=== PATIENT | female | born 1980 | race Caucasian/White ===

== ENCOUNTER 2018-03-01 10:33 | Inpatient (IN) | payer BC, OTHER ==
[~2018-03-01] VITALS: Ht 170.2 cm; Wt 81.6 kg
[2018-03-01] MEDS ORDERED: ONDANSETRON HCL INJ 2 MG/ML VIAL IV STA (10:56)
[2018-03-01] MEDS ORDERED: FAMOTIDINE 20 MG/2 ML VIAL IV STA (10:56)
[2018-03-01] MEDS ORDERED: MORPHINE SULFATE 5 MG/ML VIAL IV ONE (11:00)
[2018-03-01] MEDS ORDERED: DICYCLOMINE HCL 20 MG/2 ML VIAL IM ONE (11:00)
[2018-03-01] MEDS ORDERED: SODIUM CHLORIDE 0.9% 1000ML 2,000 ML IV ONE (11:00)
[2018-03-01 11:15] LABS: BASOPHILS % 0.3 % (0.0-1.0); HEMATOCRIT 44.1 % (34.2-44.1); HEMOGLOBIN 15.4 g/dL (12.0-16.0); LYMPHOCYTES # (AUTO) 1.4 (1.0-3.2); LYMPHOCYTES % 9.8 % (18.0-39.1); MEAN CORPUSCULAR HGB CONC 34.9 g/dL (31-35); MEAN CORPUSCULAR VOLUME 85.8 fL (81-99); MONOCYTES # (AUTO) 0.4 (0.2-0.8); MONOCYTES % 2.5 % (4.4-11.3); NEUTROPHILS # (AUTO) 12.7 (2.1-6.9); NEUTROPHILS % 86.9 % (38.7-80.0); PLATELET COUNT 442 x10e3/uL (140-360); RED BLOOD COUNT 5.14 x10e6/uL (3.6-5.1); RED CELL DISTRIBUTION WIDTH 12.1 % (11.7-14.4)
[2018-03-01] MEDS ORDERED: INSULIN REGULAR, HUMAN 100 UNIT/1 ML 3ML VIAL IV ONE (11:15)
[2018-03-01] MEDS ORDERED: MORPHINE SULFATE INJ 4 MG/ML INJ IV SCH (11:15)
[2018-03-01 11:27] LABS: BILIRUBIN,URINE NEGATIVE (NEGATIVE); CLARITY,URINE SL CLOUDY (CLEAR); COLOR,URINE YELLOW (YELLOW); KETONES,URINE 2+ (NEGATIVE); LEUKOCYTE ESTERASE ,URINE NEGATIVE (NEGATIVE); NITRITE,URINE NEGATIVE (NEGATIVE); PROTEIN,URINE DIPSTICK NEGATIVE (NEGATIVE); URINE UROBILINOGEN 0.2 mg/dL (0.2 - 1)
[2018-03-01 11:28] LABS: BACTERIA,URINE MANY /HPF; EPITHELIAL CELLS,URINE MANY /LPF
[2018-03-01 11:37] LABS: ALANINE AMINOTRANSFERASE 14 IU/L (0-55); ALBUMIN 4.1 g/dL (3.5-5.0); ALBUMIN/GLOBULIN RATIO 0.9 (0.8-2.0); ALKALINE PHOSPHATASE 110 IU/L (40-150); ANION GAP 20.2 mmol/L (8-16); BLOOD UREA NITROGEN 11 mg/dL (7-26); BUN/CREATININE RATIO 13 (6-25); CALCIUM 9.7 mg/dL (8.4-10.2); CARBON DIOXIDE 21 mmol/L (22-29); CHLORIDE 97 mmol/L (98-107); CREATININE, SERUM 0.87 mg/dL (0.57-1.11); EST GLOMERULAR FILTRATION RATE > 60 ML/MIN (60-); GLUCOSE 389 mg/dL (74-118); LIPASE 10 U/L (8-78); POTASSIUM 4.2 mmol/L (3.5-5.1); SODIUM 134 mmol/L (136-145)
[2018-03-01 11:57] LABS: MAGNESIUM 2.3 MG/DL (1.3-2.1); PHOSPHORUS 2.6 MG/DL (2.3-4.7)
[2018-03-01] MEDS ORDERED: IOPAMIDOL 370 MG/ML 200 ML INFUS..BTL INJ ONE (12:05)
[2018-03-01] MEDS ORDERED: SODIUM CHLORIDE 0.9% 50ML 50 ML ONE (12:05)
[2018-03-01] MEDS ORDERED: ENALAPRILAT IV INJ 1.25 MG/ML VIAL IV STA (12:28)
[2018-03-01] MEDS ORDERED: SODIUM CHLORIDE 0.9% 1000ML 1,000 ML ONE (12:46)
--- NOTE | 2018-03-01 13:18 | Diagnostic Imaging Report ---
EXAM: CT Abdomen and Pelvis WITH contrast INDICATION: Abdominal Pain COMPARISON: None. TECHNIQUE: Abdomen and pelvis were scanned utilizing a multidetector helical scanner from the lung base to the pubic symphysis after administration of IV contrast. Coronal and sagittal reformations were obtained. Routine protocol was performed. Scan was performed when during portal venous phase. IV CONTRAST: 100 mL of Isovue 370 ORAL CONTRAST: Gastrografin and water COMPLICATIONS: None RADIATION DOSE: Total DLP: 368.8 mGy*cm CTDIvol has been reviewed. It is below the limits set by the Radiation Protocol Committee (RPC). FINDINGS: LINES and TUBES: None. LOWER THORAX: Unremarkable HEPATOBILIARY: Diffuse mild fatty liver. No evidence of focal lesion. No biliary ductal dilation. GALLBLADDER: Status post cholecystectomy. SPLEEN: No splenomegaly. PANCREAS: No focal masses or ductal dilatation. ADRENALS: No adrenal nodules KIDNEYS/URETERS: Kidneys enhance symmetrically. No evidence of hydronephrosis, solid mass, or stone. GI TRACT: No evidence of wall thickening or distension. Appendix is normal. Scattered colonic diverticulosis without CT evidence of diverticulitis. PELVIC ORGANS/BLADDER: IUD is present. LYMPH NODES: No lymphadenopathy. VESSELS: There is a separate origin of the common hepatic artery and splenic artery directly from the aorta. PERITONEUM / RETROPERITONEUM: No free air or fluid. BONES AND SOFT TISSUES: No acute bony findings. Subcutaneous gas is present in the left lower back soft tissues. CONCLUSION: No acute abnormality in the abdomen or pelvis. Normal appendix. Mild fatty liver. Subcutaneous air in the left lower back soft tissues, which may be related to subcutaneous injection or trauma. No soft tissue stranding or fluid collection to suggest infection. Signed by: Dr. Gayle Del Rosario MD on 03/01/2018 1:15 PM
[2018-03-01] MEDS ORDERED: DEXTROSE 50% SYRINGE 50 ML IV PRN (14:15)
[2018-03-01] MEDS ORDERED: ONDANSETRON HCL INJ 2 MG/ML VIAL IV PRN (14:15)
[2018-03-01] MEDS: MORPHINE SULFATE INJ 4 MG/ML INJ IV PRN ×2 (14:25→20:33)
[2018-03-01] MEDS: PIPER-TAZ 3.375 GM 50 ML IV SCH ×2 (14:30→22:05)
[2018-03-01] MEDS: SODIUM CHLORIDE 0.9% 1000ML 1,000 ML IV SCH (14:30)
--- OUTSIDE RECORDS SUMMARY | 2018-03-01 14:32 | XMS REPORT ---
Author Author [facility] Address Unknown Phone Unavailable Care Team Providers Care Lipcoat Sprayer Name Role Phone Grayson HASKINS Unavailable Unavailable Problems This patient has no known problems. Allergies, Adverse Reactions, Alerts This patient has no known allergies or adverse reactions. Medications This patient has no known medications. Results Test Description Test Time Test Comments Text Results Atomic Results Result Comments CT ABDOMEN/PELVIS W 2018-03-01 13:05:00 [place] [address] Patient Name: LOLA MONROE MR #: [id number] : 1980 Age/Sex: 37/F Req #: [id number] Adm Physician: Ordered by: CAREY HASKINS MD Report #: [id number] Location: ER Room/Bed: Procedure: [id number] CT/CT ABDOMEN/PELVIS W Exam Date: 03/01/18 Exam Time: 1220 REPORT STATUS: Signed EXAM: CT Abdomen and Pelvis WITH contrast I NDICATION: Abdominal Pain COMPARISON: None. TECHNIQUE: Abdomen and pelvis were scanned utilizing a multidetector helical scanner from the lung base to the pubic symphysis after administration of IV contrast. Coronal and sagittal reformations were obtained. Routine protocol was performed. Scan was performed when during portal venous phase. IV CONTRAST: 100 mL of Isovue 370 ORAL CONTRAST: Gastrografin and water COMPLICATIONS: None RADIATION DOSE: Total DLP: 368.8 mGy*cm CTDIvol has been reviewed. It is below the limits set by the Radiation Protocol Committee (RPC). FINDINGS: LINES and TUBES: None. LOWER THORAX: Unremarkable HEPATOBILIARY: Diffuse mild fatty liver. No evidence of focal lesion. No biliary ductal dilation. GALLBLADDER: Status post cholecystectomy. SPLEEN: No splenomegaly. PANCREAS: No focal masses or ductal dilatation. ADRENALS: No adrenal nodules KIDNEYS/URETERS: Kidneys enhance symmetrically. No evidence of hydronephrosis, solid mass, or stone. GI TRACT: No evidence of wall thickening or distension. Appendix is normal. Scattered colonic diverticulosis without CT evidence of diverticulitis. PELVIC ORGANS/BLADDER: IUD is present. LYMPH NODES: No lymphadenopathy. VESSELS: There is a separate origin of the common hepatic artery and splenic artery directly from the aorta. PERITONEUM / RETROPERITONEUM: No free air or fluid. BONES AND SOFT TISSUES: No acute bony findings. Subcutaneous gas is present in the left lower back soft tissues. CONCLUSION: No acute abnormality in the abdomen or pelvis. Normal appendix. Mild fatty liver. Subcutaneous air in the left lower back soft tissues, which may be related to subcutaneous injection or trauma. No soft tissue stranding or fluid collection to suggest infection. Signed by: Dr. Lita Elena MD on 03/01/2018 1:15 PM Dictated By: LITA ELENA MD [id number] Transcribed By: IRENE on 03/01/18 1315 COPY TO: CAREY HASKINS MD
[2018-03-01 14:35] LABS: ABG HCO3 23 mmol/L (23-28); ABG PCO2 33 mmHg (41-51); ABG PH 7.45 (7.31-7.41); ABG PO2 98 mmHg (80-105)
[2018-03-01] MEDS ORDERED: METFORMIN HCL500 MG PO (15:26)
[2018-03-01] MEDS ORDERED: BASAGLAR SQ (15:26)
[2018-03-01] MEDS: HYDROCODONE/APAP 7.5MG-325MG 1 EA TAB PO PRN (16:11)
--- NOTE | 2018-03-01 17:03 | Diagnostic Imaging Report ---
Examination: MRI SPINE LUMBAR WITHOUT CONTRAST History: Back pain Comparison studies: None Technique: Sagittal, coronal and axial T2 , sagittal T1 and STIR; axial spin density oblique. Findings: Number of lumbar vertebral bodies: Five. Alignment: Normal lordosis. No scoliosis. Soft tissues: No T2 hyperintense inflammatory changes. The area that showed subcutaneous gas in the left gluteal region is not included in the [id number]. Posterior paraspinal soft tissues and muscles: No abnormality. Lower thoracic cord: Normal in signal and morphology. The tip of the conus is at T12-L1. Cauda equina: No masses. No arachnoiditis. Vertebrae: No fractures, infection or neoplasm. Degenerative changes: L1-L2 through L3-L4: No abnormalities. L4-L5: Asymmetric to the left disc bulge. No canal or foraminal stenosis. L5-S1: Central and right central disc protrusion. No canal or foraminal stenosis. IMPRESSION: 1. Today's abdominopelvic CT scan showed left gluteal subcutaneous gas, which is not included in the [id number] on this lumbar spine MRI. However, given the findings on recent abdominal and pelvic CT, this could represent trauma related laceration with subcutaneous gas or from gluteal injection. No further imaging is required. 2. Mild degenerative changes at L4-L5 and L5-S1 without canal or foraminal stenosis. Signed by: Dr. Senait Lu M.D. on 03/01/2018 5:00 PM
[2018-03-01 18:20] VITALS: BP 138/87
[2018-03-01 20:00] VITALS: BP 134/81
[2018-03-01] MEDS: INSULIN LISPRO 100 UNIT/1 ML 3ML VIAL SQ SCH (20:45)
[2018-03-01 22:00] VITALS: BP 134/81
[2018-03-01] MEDS ORDERED: PIPER-TAZ 3.375 GM / NS 50ML IV SCH (22:00)
[2018-03-02] VITALS (7 sets, daily range): BP systolic 108–138; BP diastolic 57–80
[2018-03-02] MEDS: SODIUM CHLORIDE 0.9% 1000ML 1,000 ML IV SCH ×4 (03:05→22:02)
[2018-03-02] MEDS: MORPHINE SULFATE INJ 4 MG/ML INJ IV PRN ×3 (03:05→20:10)
[2018-03-02] MEDS ORDERED: PANTOPRAZOLE 40 MG 10ML VIAL IV STA (03:44)
[2018-03-02] MEDS ORDERED: PANTOPRAZOL 40MG/SOD CHL 0.9% 250 ML IV SCH (04:00)
[2018-03-02] MEDS ORDERED: PANTOPRAZOL 40MG/SOD CHL 0.9% 50 ML IV ONE (04:11)
[2018-03-02 05:34] LABS: BASOPHILS # (AUTO) 0.1 (0.0-0.1); BASOPHILS % 0.5 % (0.0-1.0); EOSINOPHILS # (AUTO) 0.1 (0.0-0.4); EOSINOPHILS % 0.8 % (0.0-6.0); HEMATOCRIT 36.6 % (34.2-44.1); HEMOGLOBIN 12.3 g/dL (12.0-16.0); LYMPHOCYTES # (AUTO) 4.8 (1.0-3.2); LYMPHOCYTES % 46.9 % (18.0-39.1); MEAN CORPUSCULAR HEMOGLOBIN 29.8 pg (28-32); MEAN CORPUSCULAR HGB CONC 33.6 g/dL (31-35); MEAN CORPUSCULAR VOLUME 88.6 fL (81-99); MONOCYTES # (AUTO) 0.8 (0.2-0.8); MONOCYTES % 7.6 % (4.4-11.3); NEUTROPHILS # (AUTO) 4.5 (2.1-6.9); NEUTROPHILS % 43.7 % (38.7-80.0); PLATELET COUNT 332 x10e3/uL (140-360); RED BLOOD COUNT 4.13 x10e6/uL (3.6-5.1); RED CELL DISTRIBUTION WIDTH 12.3 % (11.7-14.4)
[2018-03-02] MEDS: METOCLOPRAMIDE HCL 10 MG/2ML VIAL IV SCH ×3 (05:53→18:08)
[2018-03-02] MEDS: PIPER-TAZ 3.375 GM 50 ML IV SCH ×3 (05:54→21:30)
[2018-03-02 05:59] LABS: ALANINE AMINOTRANSFERASE 11 IU/L (0-55); ALBUMIN 2.8 g/dL (3.5-5.0); ALBUMIN/GLOBULIN RATIO 0.9 (0.8-2.0); ALKALINE PHOSPHATASE 67 IU/L (40-150); ANION GAP 14.4 mmol/L (8-16); BLOOD UREA NITROGEN 6 mg/dL (7-26); BUN/CREATININE RATIO 8 (6-25); CARBON DIOXIDE 23 mmol/L (22-29); CHLORIDE 104 mmol/L (98-107); CREATININE, SERUM 0.75 mg/dL (0.57-1.11); EST GLOMERULAR FILTRATION RATE > 60 ML/MIN (60-); GLUCOSE 142 mg/dL (74-118); POTASSIUM 3.4 mmol/L (3.5-5.1); SODIUM 138 mmol/L (136-145)
[2018-03-02] MEDS: HYDROCODONE/APAP 7.5MG-325MG 1 EA TAB PO PRN (06:00)
[2018-03-02] MEDS: INSULIN LISPRO 100 UNIT/1 ML 3ML VIAL SQ SCH ×4 (07:30→21:15)
[2018-03-02] MEDS: PANTOPRAZOL 40MG/SOD CHL 0.9% 50 ML IV SCH ×3 (10:07→20:27)
[2018-03-02] MEDS ORDERED: MIDAZOLAM HCL 2 MG/2 ML VIAL ONE (11:42)
[2018-03-02] MEDS ORDERED: FENTANYL CITRATE/PF 100MCG/2 ML INJ ONE (11:42)
[2018-03-02] MEDS ORDERED: LIDOCAINE HCL 2% LOCAL INJ 5 ML SDV VIAL INJ ONE (11:48)
[2018-03-02] MEDS ORDERED: PROPOFOL IV EMULSION 10 MG/ML 50 ML VIAL ONE (11:48)
[2018-03-02] MEDS ORDERED: ONDANSETRON HCL INJ 2 MG/ML VIAL ONE (12:45)
[2018-03-02] MEDS: DICYCLOMINE HCL 20 MG TAB PO SCH ×3 (14:04→20:27)
--- NOTE | 2018-03-02 15:23 | Operative Report ---
DATE OF PROCEDURE: March 02, 2018 REFERRING PHYSICIANS: Dr. Eugenio Reyna and Dr. Genoveva Finney. PROCEDURE PERFORMED: Esophagogastroduodenoscopy with biopsies. INDICATIONS FOR EGD: Upper abdominal pain, nausea, and vomiting. MEDICATION: Patient was done under MAC. Please see anesthesiologist's note. PROCEDURE: With the patient in left lateral decubitus position, flexible fiberoptic Olympus gastroscope was introduced into the esophagus under direct visualization without any difficulty. There were some patchy erythema noted in distal esophagus. The scope was then advanced with ease into the stomach traversing a small sliding hiatal hernia. Mucosa overlying the antrum and the body revealed some diffuse erythema and cxb-viydu-qp-moderate edema and biopsies were obtained and sent to stain for H. pylori. There was roselia-pyloric fold also noted that was biopsied. Some hyperplastic appearing polyps, minute, body some were partially excised with a cold biopsy forceps. The pylorus was of normal contour and shape and was traversed with ease and the scope was advanced all the way to the second portion of the duodenum. Biopsies were obtained from the proximal second portion to rule out sprue. The scope was then withdrawn back into the stomach and retroflexed. Mucosa overlying the fundus and the cardia appeared to be within normal limits. The scope was then straightened out and was subsequently withdrawn. Patient tolerated the procedure well. IMPRESSION 1. Distal esophagitis, mild. 2. Small sliding hiatal hernia. 3. Gastritis biopsied, biopsies sent to stain for H. pylori. 4. Gastric polyps, hyperplastic appearing, minute, some partially excised with a cold biopsy forceps. 5. Rule out sprue. PLAN: Follow up histology. Continue current therapy. Start on ADA diet. Job#: [id number] LOGAN cc:EUGENIO REYNA MD
[2018-03-02] MEDS ORDERED: POTASSIUM CHLORIDE 20 MEQ TAB CR PO ONE (18:30)
[2018-03-02 21:21] LABS: WBC,FECAL (FECAL LACTOFERRIN) NEGATIVE (NEGATIVE)
[2018-03-03] VITALS (8 sets, daily range): BP systolic 126–145; BP diastolic 72–84
[2018-03-03] MEDS: METOCLOPRAMIDE HCL 10 MG/2ML VIAL IV SCH ×4 (00:44→17:12)
[2018-03-03] MEDS: SODIUM CHLORIDE 0.9% 1000ML 1,000 ML IV SCH ×3 (01:25→16:31)
[2018-03-03] MEDS: PANTOPRAZOL 40MG/SOD CHL 0.9% 50 ML IV SCH ×5 (02:02→20:40)
[2018-03-03] MEDS: PIPER-TAZ 3.375 GM 50 ML IV SCH ×3 (05:32→21:07)
[2018-03-03] MEDS: MORPHINE SULFATE INJ 4 MG/ML INJ IV PRN ×2 (05:55→17:45)
[2018-03-03] MEDS: INSULIN LISPRO 100 UNIT/1 ML 3ML VIAL SQ SCH ×4 (07:42→20:41)
[2018-03-03] MEDS: DICYCLOMINE HCL 20 MG TAB PO SCH ×4 (08:21→20:40)
[2018-03-03 09:19] LABS: C DIFFICILE TOXIN A&B AMP PROB NEGATIVE (NEGATIVE)
[2018-03-04] VITALS: BP_SYST 118; BP_SYST 124; BP_DIAS 58; BP_DIAS 74
[2018-03-04] MEDS: METOCLOPRAMIDE HCL 10 MG/2ML VIAL IV SCH ×2 (00:03→05:44)
[2018-03-04] MEDS: MORPHINE SULFATE INJ 4 MG/ML INJ IV PRN (00:11)
[2018-03-04] MEDS: PANTOPRAZOL 40MG/SOD CHL 0.9% 50 ML IV SCH ×2 (01:30→06:30)
[2018-03-04 04:00] VITALS: BP 132/67
[2018-03-04] MEDS: PIPER-TAZ 3.375 GM 50 ML IV SCH (05:44)
[2018-03-04 05:50] LABS: ALANINE AMINOTRANSFERASE 12 IU/L (0-55); ALBUMIN 3.1 g/dL (3.5-5.0); ALKALINE PHOSPHATASE 65 IU/L (40-150); ANION GAP 13.4 mmol/L (8-16); BLOOD UREA NITROGEN < 5 mg/dL (7-26); CALCIUM 8.4 mg/dL (8.4-10.2); CARBON DIOXIDE 26 mmol/L (22-29); CHLORIDE 100 mmol/L (98-107); CREATININE, SERUM 0.73 mg/dL (0.57-1.11); EST GLOMERULAR FILTRATION RATE > 60 ML/MIN (60-); GLUCOSE 128 mg/dL (74-118); POTASSIUM 3.4 mmol/L (3.5-5.1); SODIUM 136 mmol/L (136-145)
[2018-03-04 05:51] LABS: BUN/CREATININE RATIO 7 (6-25)
[2018-03-04] MEDS: SODIUM CHLORIDE 0.9% 1000ML 1,000 ML IV SCH (06:02)
[2018-03-04] MEDS: INSULIN LISPRO 100 UNIT/1 ML 3ML VIAL SQ SCH (07:30)
[2018-03-04 07:44] VITALS: BP 123/71
[2018-03-04] MEDS: DICYCLOMINE HCL 20 MG TAB PO SCH (08:09)
[2018-03-04] MEDS ORDERED: FLAGYL250 MG PO (09:29)
== END 2018-03-04 09:48 | disposition home or self-care (01) | DRG 392 ==
LOC: ER 10:33 → ERHOLD 14:02 → MED/SURG3 17:40
PROVIDERS: ADMIT Internal Medicine; ATTEND Internal Medicine
PROC: 0DB78ZX Excision of Stomach, Pylorus, Via Natural or Artificial Opening Endoscopic, Diagnostic (ICD-10-PCS; 2018-03-02)
PROC: 0DB98ZX Excision of Duodenum, Via Natural or Artificial Opening Endoscopic, Diagnostic (ICD-10-PCS; principal; 2018-03-02 12:18)
DX: K52.9 Noninfective gastroenteritis and colitis, unspecified (principal); I10 Essential (primary) hypertension; E11.65 Type 2 diabetes mellitus with hyperglycemia; E11.43 Type 2 diabetes mellitus with diabetic autonomic (poly)neuropathy; K31.84 Gastroparesis; E86.0 Dehydration; K20.9 Esophagitis, unspecified; K44.9 Diaphragmatic hernia without obstruction or gangrene; K29.70 Gastritis, unspecified, without bleeding; K31.7 Polyp of stomach and duodenum; Z28.21 Immunization not carried out because of patient refusal; Z79.84 Long term (current) use of oral hypoglycemic drugs; Z88.5 Allergy status to narcotic agent
CPT/HCPCS: 36415; 36600; 43239; 72148; 74177; 80053; 81001; 82805; 82947; 82948; 83630; 83690; 83735; 84100; 84295; 84520; 84702; 85025; 87040; 87045; 87086; 87177; 87493; 88305; 88312; 96361; 96372; 99284; J0500; J2001; J2250; J2270; J2405; J2543; J2765; J7030; Q9967